=== PATIENT | male | born 1985 | race African-American/Black ===

== ENCOUNTER 2016-10-09 22:57 | Emergency (ER) | payer OTHER ==
[2016-10-09] MEDS ORDERED: Ketorolac Tromethamine 30 MG/ML VIAL ONE (23:25)
[2016-10-09] MEDS ORDERED: Sodium Chloride 0.9% 1,000 ML ONE (23:25)
== END 2016-10-10 01:11 | disposition home or self-care (01) ==
LOC: NAV ERS 22:57
DX: T67.5XXA Heat exhaustion, unspecified, initial encounter (principal); J45.909 Unspecified asthma, uncomplicated; E66.01 Morbid (severe) obesity due to excess calories
CPT/HCPCS: 96361; 96374; J1885; J7050

== ENCOUNTER 2017-08-29 16:31 | Emergency (ER) | payer OTHER ==
[2017-08-29] MEDS ORDERED: Naproxen 500 MG TAB ONE (16:41)
--- NOTE | 2017-08-29 18:19 | RAD ---
LEFT FOOT THREE VIEW 08/29/17 HISTORY: Injury. Pain. COMPARISON: Foot radiograph 02/04/17. FINDINGS: There is a nondisplaced fracture at the fifth proximal metatarsal tubercle. Lisfranc interval is main tained. Mild soft tissue swelling on the lateral aspect of the foot. IMPRESSION: 1. Nondisplaced fracture of the fifth proximal metatarsal tuberosity. 2. Moderate sized plantar and dorsal calcaneal spurs. POS: [facility]
== END 2017-08-29 17:53 | disposition home or self-care (01) ==
LOC: NAV ERS 16:31
DX: S92.355A Nondisplaced fracture of fifth metatarsal bone, left foot, initial encounter for closed fracture (principal); J45.909 Unspecified asthma, uncomplicated; X58.XXXA Exposure to other specified factors, initial encounter; Y93.01 Activity, walking, marching and hiking; Y92.89 Other specified places as the place of occurrence of the external cause; Y99.0 Civilian activity done for income or pay
CPT/HCPCS: 99001